=== PATIENT | female | born 1940 | race Caucasian/White ===

== ENCOUNTER → 2017-10-03 | Outpatient (REF) ==
[~2017-10-03] MED LIST: ACIDOPHILIS PO; ASPIRIN 81M81 MG/TA2 PO; ASPIRIN E.C. 8181 MG; B COMPLEX #11 TAB PO; BIOTIN5000 MCG PO; CARDIZEM 60MG T60 MG PO; CARDIZEM CD 24240 MG PO; CURCUMIN95% PO; FERROUS SU325 MG/TAB PO; FOLIC ACID 11 MG/TA1 PO; FORTEO250 MCG/ML SQ; KELP1 TAB PO; LEVAQUIN 750MG750 M1 PO; LIPITOR20 MG; LIPITOR20 MG PO; MAGNESIUM250 M1 PO; MASON NATURAL2000 IU; MASON NATURAL2000 IU PO; MULTI VITAMINS1 TAB PO; MYSOLINE 5050 MG/TAB PO; NATURE'S BLEND500 M1 PO; NEURONTIN100 MG/CAP PO; NIASPAN 500MG500 MG PO; NORCO 325 MG-51 TAB PO; OS-CAL 500 + D1 TAB PO; PRINIVIL20 MG PO; PYRIDIUM 100MG100 MG PO; SEA OMEGA 30 121 SGL PO; SYNTHROID0.05 MG/TA PO; SYSTANE BALANCE10 M1 OP; TOPROL XL 25MG25 MG PO; TYLENOL 325MG325 MG PO; ULTRAM 50MG TAB50 MG PO; VITAMIN C500 MG PO; VITAMINC500CH PO; VOLTAREN GEL 1%1 TU TOP; ZANAFLEX 4MG TAB4 MG PO; ZOFRAN ODT8 MG PO; ZYRTEC 10MG10 MG; ZYRTEC 10MG10 MG PO
[2017-10-03 14:35] LABS: COLLECTION METHOD CLEAN CATCH
[2017-10-03 14:43] LABS: AMORPHOUS CRYSTAL Present /uL; PH 8 (5-8); SQUAMOUS EPITHELIAL None Seen /hpf; URINE APPEARANCE Clear; URINE BACTERIA None Seen /hpf; URINE BILIRUBIN Negative (NEGATIVE); URINE BLOOD Negative (NEGATIVE); URINE COLOR Yellow; URINE GLUCOSE Negative (NEGATIVE); URINE KETONE Negative (NEGATIVE); URINE LEUKOCYTE ESTERASE Negative (NEGATIVE); URINE NITRATE Negative (NEGATIVE); URINE PROTEIN(semi-quant) Negative (NEGATIVE); URINE RBC 0-2 /hpf; URINE UROBILINOGEN Negative (NEGATIVE); URINE WBC 0-2 /hpf
== END ==
LOC: ZCOL.LAB 14:34
PROVIDERS: Nurse Practitioner Family
DX: R41.82 Altered mental status, unspecified (principal)